=== PATIENT | male | born 1935 | race Caucasian/White ===

== ENCOUNTER 2024-02-24 05:34 | Day surgery (SDC) | payer MEDICARE ==
[2024-02-19 11:37] LABS: BASOPHILS # (AUTO) 0.04 K/uL (0.00-0.20); BASOPHILS % (AUTO) 0.7 % (0.0-5.0); EOSINOPHILS # (AUTO) 0.16 K/uL (0.00-0.70); EOSINOPHILS % (AUTO) 2.8 % (0.0-8.0); HEMATOCRIT 26.9 % (42-54); IMMATURE GRANULOCYTE ABSOLUTE 0.04 K/uL (0-1); LYMPHOCYTES # (AUTO) 0.9 K/uL (1.0-4.8); LYMPHOCYTES % (AUTO) 15.8 % (21.0-51.0); MEAN CORPUSCULAR HEMOGLOBIN 30.2 pg (27.0-33.0); MEAN CORPUSCULAR HGB CONC 31.2 g/dL (32.0-36.0); MEAN CORPUSCULAR VOLUME 96.8 fL (79-99); MONOCYTES # (AUTO) 0.6 K/uL (0.1-1.0); MONOCYTES % (AUTO) 10.1 % (3.0-13.0); NEUTROPHILS # (AUTO) 3.9 K/uL (1.8-7.7); NEUTROPHILS % (AUTO) 69.9 % (40.0-77.0); PLATELET COUNT (AUTO) 147 K/uL (130-400); RED BLOOD CELL COUNT(AUTO) 2.78 MIL/uL (4.50-6.20); RED CELL DISTRIBUTION WIDTH 15.9 % (11.0-15.5); WHITE BLOOD COUNT (AUTO) 5.6 K/uL (4.8-10.8)
[2024-02-19 11:46] LABS: CREATININE 2.4 mg/dL (0.5-1.3); POTASSIUM 4.8 mmol/L (3.5-5.1)
--- NOTE | 2024-02-19 11:46 | EKG ---
[facility] Test Date: 2024-02-19 Test Time: 12:20:18 Pat Name: YOHAN LANE Department: [facility] Room: Gender: M Planning Advisor: [id number] : 1935 Requested By: TRISTEN FOX Order Number: [id number] Reading MD: Elder Young Measurements Intervals [place] Rate: 72 P: 54 AR: 209 QRS: 47 QRSD: 73 T: 56 QT: 364 QTc: 400 Interpretive Statements Sinus rhythm No previous ECG available for comparison Electronically Signed On 02-19-2024 14:02:37 CHART COLLECTOR by Elder Young Please click the below link to view image of tracing.
[2024-02-19 11:48] LABS: INR 0.99 (0.85-1.15); PROTHROMBIN TIME 10.7 SEC (9.6-11.6)
[2024-02-19 11:55] VITALS: BP 152/75; PULSE 69; RESP 18; TEMP 98
[~2024-02-24] VITALS: Ht 170.2 cm; Wt 78.8 kg
[~2024-02-24 05:34] MED LIST: APIX2.5T PO; CALC-1038 PO; CHOL-34 PO; CYAN-52 PO; EMPA25TA PO; LISI20TA24 PO; MAGN100T6 PO; METO-391 PO; PANT40TA54 PO; ROSU5TAB51 PO; TAMS-1 PO; UBID100T7 PO
[2024-02-24 06:15] VITALS: BP 150/63; PULSE 78; RESP 18; TEMP 97.7
[2024-02-24] MEDS: 0.9%NACL 1000ML 1,000 ML IV SCH (06:57)
[2024-02-24] MEDS ORDERED: SODIUM BICARB 50MEQ 50ML VIAL 50 ML ONE (07:18)
[2024-02-24] MEDS ORDERED: LIDOCAINE HCL 400MG/20ML VIAL ONE (07:18)
[2024-02-24] MEDS ORDERED: HEParin-NS 1,000 UNIT/500 ML 500 ML IV ONE (07:18)
[2024-02-24] MEDS ORDERED: BUPIvacaine/PF 0.25% 30ML VIAL IJ ONE (07:29)
--- NOTE | 2024-02-24 07:56 | NUR ---
PT BROUGHT BACK FROM ORDER DISPATCHER DUE TO DR. FOX NOT BEING AVAILABLE DUE TO EMERGENT CIRCUMSTANCE. PT DECIDED TO LEAVE AND RE REGISTER FOR ANOTHER DAY. PT STATES FEELS FINE, AWAKE, ALERT AND ORIENTED X3. DR. FOX MADE AWARE.
== END 2024-02-24 08:00 | disposition home or self-care (01) ==
LOC: DAH 05:34
PROVIDERS: ATTEND Internal Medicine Cardiovascular Disease
DX: Z45.09 Encounter for adjustment and management of other cardiac device (principal); I10 Essential (primary) hypertension; E11.9 Type 2 diabetes mellitus without complications; E78.5 Hyperlipidemia, unspecified; Z85.038 Personal history of other malignant neoplasm of large intestine; R06.09 Other forms of dyspnea; I48.0 Paroxysmal atrial fibrillation; D68.59 Other primary thrombophilia; Z79.899 Other long term (current) drug therapy; Z98.890 Other specified postprocedural states; Z53.8 Procedure and treatment not carried out for other reasons
CPT/HCPCS: 93005; 80048; 85025; 85610; 85730; 36415; 82948; J0665; J3490 ×2; J7030; J1644; A4215; A4222; A4221; A4663; A4216; A4606; A4223 ×3